=== PATIENT | female | born 1965 | race American Indian/Alaskan Native ===

== ENCOUNTER 2018-08-23 15:10 | Emergency (ER) | payer SELFPAY ==
--- NOTE | 2018-08-23 15:26 | Emergency Department Report ---
Blank Doc - Documentation Documentation: 53 y o female presents to Ed cc of right flank pain x 2 days denies f/c/n/v/dysuria ua ACC eval
[2018-08-23 16:03] LABS: Bilirubin,Urine NEG (Negative); Blood,Urine NEG (Negative); Color,Urine Straw (Yellow); Mucus,Urine FEW /HPF; Protein,Urine <15 mg/dL mg/dL (Negative); Urobilinogen,Urine < 2.0 mg/dL (<2.0); WBC,Urine < 1.0 /HPF (0.0-6.0)
[2018-08-23] MEDS ORDERED: NACL 0.9% 500 ML 500 ML IV ONE (17:15)
[2018-08-23] MEDS ORDERED: MORPHINE IV ONE (17:15)
[2018-08-23] MEDS ORDERED: TORADOL IV ONE ×2 (17:15→22:30)
--- NOTE | 2018-08-23 17:16 | Emergency Department Report ---
ED General Adult HPI - General Chief complaint: Abdominal Pain Stated complaint: RT SIDE PAIN Time Seen by Provider: 08/23/18 15:24 Source: patient, RN notes reviewed Mode of arrival: Ambulatory Limitations: No Limitations - History of Present Illness Initial comments: This is a 53-year-old female. The patient is not known to this provider previously. Her past medical history includes hypertension. Primary care doctor is Dr. Keene, with [facility]. No history of abdominal surgeries. Patient is postmenopausal. Patient presents to the emergency room with complaint of nontraumatic right- sided flank, thorax, abdominal pain. The pain started yesterday. It is squeezing, sharp and aching. It increases with palpation and movement. It decreases with rest. She denies DVT, pulmonary embolus risk factors. She denies headache, neck pain, chest pain, lower abdominal pain, urinary symptoms, shortness of breath. She denies fevers and chills. She's ever had pain like this before. No recent strenuous physical activity that she is aware. -: Sudden Location: abdomen Radiation: non-radiation Quality: aching Consistency: other Improves with: rest Worsens with: movement - Related Data Allergies Allergy/AdvReac Type Severity Reaction Status Date / Time No Known Allergies Allergy Verified 08/23/18 15:22 ED Review of Systems ROS: Stated complaint: RT SIDE PAIN Other details as noted in HPI Constitutional: denies: fever Eyes: denies: eye discharge ENT: denies: dental pain, epistaxis Respiratory: denies: shortness of breath Cardiovascular: denies: chest pain Gastrointestinal: abdominal pain. denies: nausea, vomiting Genitourinary: denies: urgency, dysuria Musculoskeletal: back pain Skin: denies: lesions Neurological: denies: headache, weakness Psychiatric: denies: anxiety ED Past Medical Hx - Past Medical History Previous Medical History?: Yes Hx Hypertension: Yes - Surgical History Past Surgical History?: No - Social History Smoking Status: Never Smoker ED Physical Exam - General Limitations: No Limitations General appearance: alert, in no apparent distress - Head Head exam: Present: atraumatic, normocephalic - Eye Eye exam: Present: normal appearance, EOMI. Absent: nystagmus - ENT ENT exam: Present: normal exam, normal orophraynx, mucous membranes moist, normal external ear exam - Neck Neck exam: Present: normal inspection, full ROM. Absent: tenderness, meningismus - Respiratory Respiratory exam: Present: normal lung sounds bilaterally, chest wall tenderness (is reproducible distal lateral thoracic wall tenderness.). Absent: respiratory distress - Cardiovascular Cardiovascular Exam: Present: normal rhythm, bradycardia, normal heart sounds. Absent: tachycardia, irregular rhythm, systolic murmur, diastolic murmur, rubs, gallop - GI/Abdominal GI/Abdominal exam: Present: soft, tenderness, other (there is right flank te nderness.). Absent: distended, guarding, rebound, rigid, pulsatile mass - Extremities Exam Extremities exam: Present: normal inspection, full ROM, other (2+ pulses noted in the bilateral upper, lower extremities. Compartments soft. No long bony tenderness. The pelvis is stable.). Absent: pedal edema, joint swelling, calf tenderness - Back Exam Back exam: Present: normal inspection, full ROM, CVA tenderness (R). Absent: tenderness, CVA tenderness (L), paraspinal tenderness, vertebral tenderness - Neurological Exam Neurological exam: Present: alert, oriented X3, other (Extraocular movements intact. Tongue midline. No facial droop. Facial sensation intact to light touch in the V1, V2, V3 distribution bilaterally. 5 and 5 strength in 4 extremities.. Sensation is intact to light touch in 4 extremities.). Absent: motor sensory deficit - Psychiatric Psychiatric exam: Present: normal affect, normal mood - Skin Skin exam: Present: warm, dry, intact, normal color, other (no skin lesions n oted.). Absent: rash, vesicles ED Course Vital Signs 08/23/18 08/23/18 08/23/18 15:25 17:03 18:00 Temperature 98.8 F 98.4 F 98 F Pulse Rate 58 L 58 L 58 L Respiratory 20 16 16 Rate Blood Pressure 145/85 Blood Pressure 120/60 133/81 [Right] O2 Sat by Pulse 100 98 100 Oximetry 08/23/18 19:15 Temperature 98.2 F Pulse Rate 53 L Respiratory 18 Rate Blood Pressure Blood Pressure 138/76 [Right] O2 Sat by Pulse 100 Oximetry - Reevaluation(s) Reevaluation #1: 08/23/18 19:08 Differential diagnosis, including but not limited to: Cholecystitis, pancreatitis, renal colic, pneumonia, costochondritis, pulmonary embolus Assessment and plan 53-year-old female, no pulmonary embolus or DVT risk factors, low risk by well's criteria, not tachycardic, not hypoxic, with no chest pain, with reproducible right lateral thoracic wall pain, right flank pain. She is afebrile with reassuring vital signs. Her screening laboratory studies are unremarkable. EKG abnormal without prior for comparison, no endorsement of chest pain, shortness of breath, vomiting or diaphoresis. D-dimer elevated, patient given pain medication, CT scan of the chest, abdomen, pelvis pending interpretation at this time. We will reassess after her initial data points. Reevaluation #2: 08/24/18 01:13 08/23/2018, 10:24 PM. The patient is reassessed. Her vital signs remained stable and unremarkable. CT scan of the chest is negative for acute disease. CT scan of the abdomen and pelvis suggest possible right-sided pyelonephritis, and question nonspecific colitis noted on the descending colon. Incidental findings are otherwise unremarkable. Question uterine fibroids noted. Clinically doubts diverticulitis at this time. We will treat e mpirically for atypical presentation of pyelonephritis. The patient will be discharged with prescriptions for pain medication, nausea medication, and empiric antibiotic therapy. She will be counseled to follow up with outpatient primary care, or urology, and outpatient cardiology for her incidental abnormal EKG. The patient has been observed in this emergency room for a prolonged. Of time without clinical decompensation, and she is medically suitable for a trial of oral outpatient antibiotic therapy, and outpatient management. Patient will be loaded with 1 g of ceftriaxone in the emergency room, and discharged with prescriptions for Levaquin, 750 mg, once daily, for 7 days, oxycodone, 5 mg, every 4-6 hours, when necessary pain, Reglan, 10 mg, orally, every 6 hours, when necessary nausea, and instructions to follow up with an outpatient primary care doctor. ED Medical Decision Making - Lab Data Result diagrams: 08/23/18 17:47 08/23/18 17:47 Vital Signs 08/23/18 08/23/18 08/23/18 15:25 17:03 18:00 Temperature 98.8 F 98.4 F 98 F Pulse Rate 58 L 58 L 58 L Respiratory 20 16 16 Rate Blood Pressure 145/85 Blood Pressure 120/60 133/81 [Right] O2 Sat by Pulse 100 98 100 Oximetry Lab Results 08/23/18 08/23/18 08/23/18 Range/Units 15:51 17:47 17:47 WBC 6.4 (4.5-11.0) K/mm3 RBC 4.47 (3.65-5.03) M/mm3 Hgb 12.4 (10.1-14.3) gm/dl Hct 37.4 (30.3-42.9) % MCV 84 (79-97) fl MCH 28 (28-32) pg MCHC 33 (30-34) % RDW 14.1 (13.2-15.2) % Plt Count 212 (140-440) K/mm3 PT 13.1 (12.2-14.9) Sec. INR 0.94 (0.87-1.13) D-Dimer 544.54 H (0-234) ng/mlDDU Sodium (137-145) mmol/L Potassium (3.6-5.0) mmol/L Chloride (98-107) mmol/L Carbon Dioxide (22-30) mmol/L Anion Gap mmol/L BUN (7-17) mg/dL Creatinine (0.7-1.2) mg/dL Estimated GFR ml/min BUN/Creatinine Ratio % Glucose (65-100) mg/dL Calcium (8.4-10.2) mg/dL Total Bilirubin (0.1-1.2) mg/dL AST (5-40) units/L ALT (7-56) units/L Alkaline Phosphatase (35-129) units/L Total Protein (6.3-8.2) g/dL Albumin (3.9-5) g/dL Albumin/Globulin Ratio % Lipase (13-60) units/L Urine Color Straw (Yellow) Urine Turbidity Clear (Clear) Urine pH 5.0 (5.0-7.0) Ur Specific [place] 1.013 (1.003-1.030) Urine Protein <15 mg/dl (Negative) mg/dL Urine Glucose (UA) Neg (Negative) mg/dL Urine Ketones Neg (Negative) mg/dL Urine Blood Neg (Negative) Urine Nitrite Neg (Negative) Urine Bilirubin Neg (Negative) Urine Urobilinogen < 2.0 (<2.0) mg/dL Ur Leukocyte Esterase Neg (Negative) Urine WBC (Auto) < 1.0 (0.0-6.0) /HPF Urine RBC (Auto) 1.0 (0.0-6.0) /HPF U Epithel Cells (Auto) 2.0 (0-13.0) /HPF Urine Mucus Few /HPF 08/23/18 08/23/18 Range/Units 17:47 17:47 WBC (4.5-11.0) K/mm3 RBC (3.65-5.03) M/mm3 Hgb (10.1-14.3) gm/dl Hct (30.3-42.9) % MCV (79-97) fl MCH (28-32) pg MCHC (30-34) % RDW (13.2-15.2) % Plt Count (140-440) K/mm3 PT (12.2-14.9) Sec. INR (0.87-1.13) D-Dimer (0-234) ng/mlDDU Sodium 139 (137-145) mmol/L Potassium 4.8 (3.6-5.0) mmol/L Chloride 99.8 (98-107) mmol/L Carbon Dioxide 29 (22-30) mmol/L Anion Gap 15 mmol/L BUN 13 (7-17) mg/dL Creatinine 1.0 (0.7-1.2) mg/dL Estimated GFR > 60 ml/min BUN/Creatinine Ratio 13 % Glucose 90 (65-100) mg/dL Calcium 10.0 (8.4-10.2) mg/dL Total Bilirubin 0.30 (0.1-1.2) mg/dL AST 24 (5-40) units/L ALT 17 (7-56) units/L Alkaline Phosphatase 64 (35-129) units/L Total Protein 7.8 (6.3-8.2) g/dL Albumin 4.4 (3.9-5) g/dL Albumin/Globulin Ratio 1.3 % Lipase 27 (13-60) units/L Urine Color (Yellow) Urine Turbidity (Clear) Urine pH (5.0-7.0) Ur Specific [place] (1.003-1.030) Urine Protein (Negative) mg/dL Urine Glucose (UA) (Negative) mg/dL Urine Ketones (Negative) mg/dL Urine Blood (Negative) Urine Nitrite (Negative) Urine Bilirubin (Negative) Urine Urobilinogen (<2.0) mg/dL Ur Leukocyte Esterase (Negative) Urine WBC (Auto) (0.0-6.0) /HPF Urine RBC (Auto) (0.0-6.0) /HPF U Epithel Cells (Auto) (0-13.0) /HPF Urine Mucus /HPF - EKG Data -: EKG Interpreted by [facility] EKG shows normal: sinus rhythm Rate: bradycardia - EKG Data 08/23/18 19:09 This is a sinus bradycardia, 52 bpm, borderline left axis deviation, borderline left anterior fascicular block, T-wave inversion in V2, V3, Q wave in the inferior leads, no endorsement of chest pain, this is an abnormal EKG. This EKG is not consistent with ST elevation myocardial infarction. - Radiology Data Radiology results: pending, report reviewed, image reviewed Critical care attestation.: If time is entered above; I have spent that time in minutes in the direct care of this critically ill patient, excluding procedure time. ED Disposition Clinical Impression: Right flank pain Disposition: DC-01 TO HOME OR SELFCARE Is pt being admited?: No Does the pt Need Aspirin: No Condition: Stable Instructions: Abdominal Pain (ED) Additional Instructions: Follow up with a primary care doctor or regional sales manager for incidental abnormal EKG findings within the next 7-10 days. Discharge diagnosis: Right flank pain Take the pain medication, nausea medication, antibiotic therapy as directed. Do not consume alcohol for the next 14 days. Follow up with a primary care doctor, or urology doctor within the next 7-10 days for repeat checkup/evaluation. CT scan of the abdomen and pelvis suggest an infection of the right kidney. Other incidental nonemergent findings were noted. Please have your primary care doctor contact the medical records department to obtain CT scan reports to follow up on nonemergent incidental findings. Return to the emergency room right away with new pain, worsened pain, migration of pain, productive vomiting, change in mental status, confusion, inability to tolerate liquid feeds. EKG demonstrated nonspecific incidental abnormal findings, without prior for comparison. Follow up with the primary care doctor or regional sales manager for this within the next 2 weeks. [facility] is a local medical clinic. Address:[address] [place] [id number] Hours: Closed Opens 8AM [facility] is a local urology practice. Address:[facility], [place] [address] Hours: Closed Opens 9AM Wed [facility] is a local cardiology practice. [address], [place] [address] Referrals: PATIENCE SALOMON MD [Primary Care Provider] - 3-5 Days
[2018-08-23 18:04] LABS: Hematocrit 37.4 % (30.3-42.9); Hemoglobin 12.4 gm/dl (10.1-14.3); Mean Corpuscular HGB Conc 33 % (30-34); Mean Corpuscular Volume 84 fl (79-97); Platelet Count 212 K/mm3 (140-440); Red Blood Count 4.47 M/mm3 (3.65-5.03); Red Cell Distribution Width 14.1 % (13.2-15.2)
[2018-08-23 18:12] LABS: INR 0.94 (0.87-1.13)
[2018-08-23 18:25] LABS: Albumin 4.4 g/dL (3.9-5); BUN/Creatinine Ratio 13; Blood Urea Nitrogen 13 mg/dL (7-17); Hemolysis Index 104
[2018-08-23 18:30] LABS: Alanine Aminotransferase 17 units/L (7-56)
[2018-08-23 19:38] VITALS: BP 138/76
--- NOTE | 2018-08-23 21:49 | Cat Scan Report ---
PROCEDURE: CT ANGIO CHEST TECHNIQUE: Computerized tomographic angiography of the chest was performed after the IV injection of iodinated nonionic contrast including image processing. The image data was postprocessed using 2-di mensional multiplanar reformatted (MPR) and 3-dimensional (MIP and/or volume rendered) techniques. Au tomated exposure control, adjustment of mA and/or kV according to patient size, or iterative reconstr uction dose optimization techniques were utilized. CT DOSE LENGTH PRODUCT: mGycm HISTORY: flank thorax pain + d dimer COMPARISONS: None . FINDINGS: Heart and pericardium: Normal. Thoracic aorta: Normal. Pulmonary vasculature: Normal. Lymph nodes: No enlarged thoracic lymph nodes. Lungs: Normal. Pleural space: No effusion, thickening, or pneumothorax. Musculoskeletal structures: No significant abnormality. Upper abdominal structures: No significant abnormality. IMPRESSION: Negative no CT evidence for acute pulmonary embolus. This document is electronically signed by Black Lima MD., August 23 2018 08:25:35 PM ET
--- NOTE | 2018-08-23 21:49 | Cat Scan Report ---
PROCEDURE: CT ABDOMEN PELVIS W CON TECHNIQUE: Computerized axial tomography of the abdomen and pelvis was performed after the IV inject ion of iodinated nonionic contrast. HISTORY: flank thorax pain + d dimer COMPARISONS: None . FINDINGS: Lower Lung ventura: There is mild dependent atelectasis. Portions of bilateral breast implants are pa rtially visualized. Upper Abdomen: The liver, the gallbladder, the adrenal glands, the pancreas and spleen are unremarka ble. Kidneys, Ureters and Urinary bladder: The left kidney, the left ureter and urinary bladder are unrem arkable. There is heterogeneous enhancement of the renal parenchyma in the right kidney. This can be seen with pyelonephritis. Correlation with urinalysis recommended. No definite masses are identified. There is no hydronephrosis or ureteral calculi identified. A calcification is visualized in the righ t lower pelvis which appears to represent a phlebolith. Urinary bladder is only partially filled and shows no focal abnormalities. Retroperitoneum: Abdominal aorta appears normal. Nonspecific subcentimeter lymph nodes are seen in the retroperitoneum. No pathologically enlarged ly mph nodes are identified. Bowel: Mild diverticulosis seen in left side of the colon without evidence of diverticulitis.The wal ls of the descending colon appear mildly prominent and show mild decreased density in the submucosal layer. This can be related to fatty deposition and diet history.. I cannot exclude a mild nonspecific colitis. I do not see evidence of bowel obstruction ascites or free intraperitoneal gas. Bowel loops otherwise are unremarkable. Normal-appearing appendix is visualized in the right lower qu adrant. Reproductive organs: The uterus enhances slightly heterogeneously. There may be uterine fibroids pre sent. No abnormal adnexal masses are seen. Other: No acute bone abnormalities are identified. IMPRESSION: There is heterogeneous enhancement of the renal parenchyma in the right kidney. This can be seen with pyelonephritis. No masses or hydronephrosis visualized. Recommend correlation with urinalysis. Loss of the descending colon are mildly prominent as described above.. I cannot exclude a mild nonspe cific colitis. There is mild diverticulosis left side of the colon without inflamed diverticuli to arroyo ggest diverticulitis. Possible uterine fibroids. This document is electronically signed by Mukul Stokes MD., August 23 2018 08:57:41 PM ET
[2018-08-23] MEDS ORDERED: ROCEPHIN/NS 1 GM/50 ML 1 GM/50 ML BAG IV ONE ×2 (22:30→22:44)
[2018-08-23] MEDS ORDERED: TORADOL ONE (22:43)
== END 2018-08-23 23:30 | disposition home or self-care (01) ==
LOC: ED 15:10
DX: R00.1 Bradycardia, unspecified (principal); R10.9 Unspecified abdominal pain; I10 Essential (primary) hypertension
CPT/HCPCS: 36415; 71275; 74177; 80053; 81001; 83690; 85027; 85379; 85610; 93005; 93010; 96374; 96375; 99284; J0696; J1885; J2270; J7040; Q9967